=== PATIENT | male | born 1995 | race Two or more races ===

== ENCOUNTER → 2018-08-02 | Outpatient (REF) | payer OTHER ==
[2018-08-02 18:24] LABS: HEMATOCRIT 47.2 % (42.0-52.0); HEMOGLOBIN 15.7 g/dl (13.5-17.5); MEAN CORPUSCULAR HEMOGLOBIN 30.9 pg (27.0-33.0); MEAN CORPUSCULAR HGB CONC 33.3 g/dl (32.0-36.5); MEAN CORPUSCULAR VOLUME 92.9 fl (80.0-96.0); PLATELET COUNT, AUTOMATED 269 10^3/uL (150-450); RED BLOOD COUNT 5.08 10^6/uL (4.30-6.10); WHITE BLOOD COUNT 8.8 10^3/uL (4.0-10.0)
[2018-08-02 18:32] LABS: BLOOD UREA NITROGEN 11 MG/DL (7-18); CALCIUM LEVEL 9.2 MG/DL (8.5-10.1); CARBON DIOXIDE LEVEL 32 MEQ/L (21-32); CHLORIDE LEVEL 105 MEQ/L (98-107); GLUCOSE, FASTING 82 MG/DL (70-100); POTASSIUM SERUM 4.3 MEQ/L (3.5-5.1); SODIUM LEVEL 139 MEQ/L (136-145)
[2018-08-02 18:39] LABS: INR 0.94; PROTHROMBIN TIME 12.7 SECONDS (12.1-14.4)
[2018-08-02 18:40] LABS: PARTIAL THROMBOPLASTIN TIME 38.6 SECONDS (25.4-37.6)
== END ==
LOC: M WUC 17:04
PROVIDERS: ATTEND Nurse Practitioner Family
DX: N47.1 Phimosis (principal); Z01.818 Encounter for other preprocedural examination

== ENCOUNTER 2018-08-30 05:59 | Day surgery (SDC) | payer OTHER ==
[~2018-08-30] VITALS: Ht 167.6 cm; Wt 66.6 kg
[~2018-08-30 05:59] MED LIST: CLIN1GEL3 TOP; MINO100C4 PO; [UNRECOGNIZED DRUG - CODE] TOP
[2018-08-30] MEDS ORDERED: LR 1,000 ML IV ONE (06:00)
[2018-08-30] MEDS ORDERED: dexameTHASONE 4 MG/ML 1ML VIAL (J1100) As Ordered ONE (07:35)
[2018-08-30] MEDS ORDERED: PROPOFOL 200 MG/20 ML VIAL As Ordered ONE (07:39)
[2018-08-30] MEDS ORDERED: fentaNYL 100 MCG/2 ML INJECTION (J3010) As Ordered ONE (07:39)
[2018-08-30] MEDS ORDERED: LIDOCAINE 2% INJ 100 MG/5 ML SDV (FOR ANES.) As Ordered ONE (07:39)
[2018-08-30] MEDS ORDERED: MIDAZOLAM INJ 2 MG/2 ML VIAL (J2250) As Ordered ONE (07:39)
[2018-08-30] MEDS ORDERED: ONDANSETRON 4MG/2ML VIAL (J2405) As Ordered ONE (07:52)
[2018-08-30] MEDS ORDERED: KETOROLAC 60 MG/2 ML VIAL (J1885) As Ordered ONE (07:52)
[2018-08-30] MEDS ORDERED: BACITRACIN OINT 30GM As Ordered ONE (08:01)
[2018-08-30] MEDS ORDERED: PERCOCET 5MG/325MG TAB PO PRN ×2 (09:15)
[2018-08-30] MEDS ORDERED: ONDANSETRON 4MG/2ML VIAL (J2405) IV PRN (09:15)
[2018-08-30] MEDS ORDERED: METOCLOPRAMIDE INJ 10MG/2ML VIAL (J2765) IV PRN (09:15)
[2018-08-30] MEDS ORDERED: LR 1,000 ML IV SCH (09:15)
[2018-08-30] MEDS ORDERED: fentaNYL 100 MCG/2 ML INJECTION (J3010) IV PRN (09:15)
--- NOTE | 2018-08-30 11:16 | RO ---
DATE OF PROCEDURE: 08/30/2018 PREPROCEDURE DIAGNOSIS: Phimosis. POSTPROCEDURE DIAGNOSIS: Phimosis. PROCEDURE: Circumcision. SURGEON: Dr. Keo Celestin ORANGE PICKING SUPERVISOR: None. ANESTHESIA: General. OPERATIVE INDICATIONS: This is a 23-year-old male who is uncircumcised. He presented requesting circumcision. DESCRIPTION OF PROCEDURE: The patient was brought to the operating room and general anesthesia was induced. Prophylactic antibiotics were infused. He was then placed in supine position and prepped and draped in the usual sterile fashion. At this point, a circumcising incision was made at the level of the coronal sulcus with the foreskin completely retracted proximally and then another circumcision incision was made on the skin of the penile shaft with the foreskin retracted distally over the glans. The two circumcising incisions were then connected using electrocautery. All of the skin in between the circumcising incisions was then removed using electrocautery. Once that was done, any small bleeding vessels were controlled with electrocautery. Once satisfied with hemostasis, the skin of the penile shaft was then reapproximated to the glans using interrupted #3-0 chromic sutures. Once the skin was reapproximated, dressings were then applied including a Tobias followed by a Coban dressing. Once that was done, this marked the conclusion of the procedure. The patient was then awakened from anesthesia and transported to the recovery room in stable condition. Estimated blood loss 15 mL. Complications: None. Specimens: Foreskin. Plan: The patient will remove his dressings in two days. He will followup in the clinic in approximately 2-3 weeks for a postoperative visit. [place]
== END 2018-08-30 11:30 | disposition home or self-care (01) ==
LOC: M SDC 05:59 → EDUNIT# 07:30 → M SDC 11:30
PROVIDERS: ATTEND Urology
DX: N47.1 Phimosis (principal)
CPT/HCPCS: 54161; 88304; J0690; J1100; J1885; J2250; J2405; J3010